=== PATIENT | male | born 1945 | race Caucasian/White ===

== ENCOUNTER 2016-12-22 13:06 | Inpatient (IN) | payer MEDICARE, BC ==
[~2016-12-22] VITALS: Ht 177.8 cm; Wt 102.3 kg
--- NOTE | ~2016-12-22 | ECH ---
Transthoracic Echocardiography Report (TTE) Demographics Patient Name MATTHEW PORTER Date of Study 12/22/2016 Patient Number [id number] Visit Number [id number] Date of 1945 Room Number Accession Number [id number] Gender Male Age 71 year(s) Referring Sergio Deng Negative Cutter Lisa Duff MD [facility] Physician Interpreting Sergio Deng Residential Manager Physician Supervising Ordering Physician Sergio Deng MD/MLP Nurse Stress Ramp And Cargo Supervisor Conclusions Summary Technically good exam. The estimated left ventricular ejection fraction is 60%. Mild concentric left ventricular hypertrophy. Diastolic assessment reveals Grade I diastolic dysfunction. Mild biatrial enlargement. Mild prolapse of the posterior mitral valve leaflet(s). Moderate mitral regurgitation by color Doppler. Procedure Type of Study TTE procedure:Echo Complete SF. Procedure Date Date: 12/22/2016 Start: 02:45 PM Technical Quality: Good visualization Indications:Chest pain and Elevated Troponin. Appropriate Use Criteria: 9 Height: 72 inches Weight: 230 pounds BSA: 2.26 m Rhythm: Sinus bradycardia HR: 55 bpm BP: 132/76 mmHg M-Mode/2D Measurements LV Diastolic Dimension: 4.59 cm LV Systolic Dimension: 2.73 cm LV Septum Diastolic: 1.27 cm LV PW Diastolic: 1.22 cm AO Root Dimension: 2.9 cm Cardiac Output: 7.82 l/min LA Dimension: 4.34 cm Cardiac Index: 3.46 l/min*m RV Diastolic Dimension: 4.13 cm LA volume index: 36 ml/m LVOT: 2.13 cm LVOT VTI: 39.91 cm RV Base: 3.5 cm LV Stroke volume: 142.14 ml RV Mid: 2.9 cm LV Stroke volume index: 62.89 ml/m TAPSE: 2.4 cm TDI-S': 14 cm/s Doppler Measurements AV Peak Velocity: 1.5 m/s MV Peak E-Wave: 0.65 m/s AV Peak Gradient: 9 mmHg MV Peak A-Wave: 0.89 m/s AV Mean Gradient: 5.98 mmHg MV E/A Ratio: 0.73 LVOT Peak Velocity: 1.54 m/s MV P1/2t: 69.3 msec AV Area (Continuity):3.74 cm MV Deceleration Time: 236.2 msec MV Area (PHT): 3.17 cm PV Peak Velocity: 1.07 m/s E' Septal Velocity: 0.06 m/s PV Peak Gradient: 4.57 mmHg E' Lateral Velocity: 0.09 m/s A' Septal Velocity: 0.1 m/s A' Lateral Velocity: 0.11 m/s RA Area: 18.33 cm Findings Left Ventricle The left ventricle is normal in size . Mild concentric left ventricular hypertrophy. Diastolic assessment reveals Grade I diastolic dysfunction. Right Ventricle Normal right ventricle structure and function. Left Atrium The left atrium is mildly dilated by LA volume index measurement. Right Atrium The right atrium is mildly dilated. Mitral Valve Systolic anterior motion of the anterior mitral valve leaflet. Mild prolapse of the posterior mitral valve leaflet(s). Mild mitral regurgitation by color Doppler. Aortic Valve Normal aortic valve structure and function. Tricuspid Valve Normal tricuspid valve structure and function. Trivial tricuspid regurgitation by color Doppler. Insufficient jet to calculate pulmonary pressures. Pulmonic Valve Normal pulmonic valve structure and function. Pericardial Effusion No evidence of pericardial effusion. Miscellaneous Visualized portions of the aortic root and ascending aorta appear normal in size. Pleural Effusion No evidence of pleural effusion. Contractility Score LV regional wall motion:(0-Non visualized 1-Normal 2-Hypokinesis 3-Akinesis 4-Dyskinesis 5-Aneurysm) Signature
--- NOTE | ~2016-12-22 | CATH ---
Cardiac Diagnostic + PCI Report Demographics Patient Name GERMAN Dumont Gender Male Date of 1945 Age 71 year(s) Patient Number [id number] Date of Study 12/23/2016 Visit Number [id number] Room Number 424 [employer] ID Ht 182.88 cm Wt 104.33 kg Accession Number [id number] BSA 2.26 m kg/m Referring Fruehling Alvin R Primary Physician Physician Performing Fruehling Alvin R Secondary Physician Physician Diagnostic Fruehling Alvin R Assisting Physician Physician MD Interventional Fruehling Alvin R Physician Inward Toll Operator Physician MD Findings and Conclusions Diagnostic Findings and Conclusion 1. Two vessel CAD -Sequential 80% mid LAD and 95% distal LAD -90% prox OM-1, calcified -Non-obstructive CAD of Dominant RCA 2. EDP 10mmhg Diagnostic Recommendations 1. Immediate PCI of 80% mLAD, 95% dLAD, and 90% prox OM-1 lesions Interventional Findings and Conclusion 1. Successful PCI of LAD with overlapping 3.5 X 16 and 4.0 X 20 Synergy Drug Eluting Stent from distal to proximal. 2. Post-dilated with a 4.5 mm NC balloon 3. IVUS of LAD due to a proximal filling defect showed no dissection and good stent apposition 4. Successful PCI of OM-1 with a 2.5 X 12 Synergy Drug Eluting Stent. Highly calcified and post-dilated with a NC balloon. Interventional Recommendations 1. Integrilin infusion x 12 hours 2. [facility] dual anti-platelet therapy Procedure Description The patient was brought to the diagnostic cardiac catheterization laboratory in the fasting, non-sedated state. Informed consent was obtained in the written and verbal form after the risks and benefits were explained. The patient had no further questions and agreed to proceed. The planned puncture-incision site(s) were shaved and prepped with ChloraPrep and draped in the usual sterile manner. Conscious sedation, supplemental oxygen, and pain control medications were delivered by a registered nurse under physician guidance. Surface ECG rhythm, blood pressure measurement, and pulse oximetry were monitored throughout the procedure. Arterial access. The right radial access site was infiltrated with lidocaine. The vessel was entered with the Seldinger technique. A 6F sheath was advanced into the vessel and used for catheter placement. Radial cocktail was administered per protocol. Selective right coronary angiography. A JR4 catheter was advanced into the right coronary vessel ostium under fluoroscopic guidance. Contrast was injected by hand. Images were obtained in multiple projections. Selective left coronary angiography. An FL3.5 catheter was advanced into the left coronary vessel ostium under Fluoroscopic guidance. Contrast was injected by hand. Images were obtained in multiple projections. Left heart catheterization. A JR4 catheter was advanced across the aortic valve to the left ventricle under fluoroscopic guidance. Resting hemodynamics were obtained. Angioplasty and Stent Placement: An EBU 3.5 guiding catheter was used to intubate the LAD vessel. A 0.14 Prowater wire was then used to cross the LAD lesions. A 2.75 X 12 Emerge balloon catheter was placed across the mid and distal lesions and inflated. The balloon catheter was then removed. A 3.5 X 16 Synergy Drug Eluting Stent was placed across the dLAD lesion and inflated. A 4.0 X 20 Synergy Drug Eluting Stent was placed across the mLAD lesion and inflated.The mLAD lesion was post-dilated with a 4.5 X 12 NC Emerge balloon. Post placement angiograms were performed. IVUS was performed. The LAD vessel was cannulated. An .014 Prowater interventional wire was advanced across the LAD lesson into the distal vessel. The IVUS catheter was advanced into position and imaging was performed. Vessel dimensions were measured. Angioplasty and Stent Placement: An EBU3.5 guiding catheter was used to intubate the OM1 vessel. A 0.14 Luge wire was then used to cross the OM1 lesion. A 2.25 X 12 Emerge balloon catheter was placed across the OM1 lesion and inflated. The balloon catheter was then removed. A 2.5 X 12 Synergy Drug Eluting Stent was placed across the OM1 lesion and inflated. The OM1 lesion was post-dilated with a 2.5 X 8 NC Emerge balloon. Post placement angiograms were performed. Arterial artery hemostasis was achieved with a TR band. The patient was transferred to a regular nursing floor via cart accompanied by a nurse. The patient left the laboratory in stable condition. Diagnostic Cath Status: Urgent Procedure Procedure Type Diagnostic procedure:Angiography:, Coronary Angios /[facility] PCI procedure:Drug Eluting Coronary Stent:, LAD, OM, Additional Imaging:, IVUS:, Initial Vessel Indications: NSTEMI, Hypertension and Tobacco use-prior. The procedure was explained in detail to the patient. Risks, complications and alternative treatments were reviewed. Written consent was obtained. Medications Reviewed with Patient prior to Procedure. Complications: No Complication. Angiographic Findings Dominance: Right Cardiac Arteries and Lesion Findings LMCA: Normal (0% Stenosis). LAD: Abnormal.Thrombotic lesions Lesion on Dist LAD: 95% stenosis reduced to 0%.Post Procedure YISEL III flow was present. The guidewire cross was successful.The lesion was diagnosed as a low risk lesion.Culprit lesion. Treatment results:Interventional treatment was successful. Devices used - PROWATER WIRE 0.014" X 180CM. Number of passes: 1. - CATH BAL RX EMERGE 2.75X12. 1 inflation(s) to a max pressure of: 12 araceli. - CATH BAL RX EMERGE 2.75X12. 1 inflation(s) to a max pressure of: 7 araceli. - CATH STENT SYNERGY 3.5 X 16. 1 inflation(s) to a max pressure of: 16 araceli. Lesion on Mid LAD: 80% stenosis reduced to 0%.Post Procedure YISEL III flow was present. The guidewire cross was successful.The lesion was diagnosed as a low risk lesion.Culprit lesion. Treatment results:Interventional treatment was successful. Devices used - CATH BAL RX EMERGE 2.75X12. 1 inflation(s) to a max pressure of: 9 araceli. - CATH STENT SYNERGY 4.0 X 20. 1 inflation(s) to a max pressure of: 17 araceli. - CATH BAL RX NC EMERGE 4.5X12. 2 inflation(s) to a max pressure of: 14 araceli. Lesion on Prox LAD: 30% stenosis . LCx: Abnormal. Lesion on 1st Ob Krystal: Proximal subsection.95% stenosis reduced to 0%.Post Procedure YISEL III flow was present. The guidewire cross was successful.The lesion was diagnosed as a low risk lesion.Culprit lesion. Treatment results:Interventional treatment was successful. Devices used - PROWATER WIRE 0.014" X 180CM. Number of passes: 1. - LUGE WIRE 0.014" X 180CM. Number of passes: 1. - CATH BAL RX EMERGE 2.25X12. 2 inflation(s) to a max pressure of: 12 araceli. - CATH STENT SYNERGY 2.5 X 12. 1 inflation(s) to a max pressure of: 15 araceli. - CATH BAL RX NC EMERGE 2.5X8. 1 inflation(s) to a max pressure of: 20 araceli. RCA: Abnormal. Lesion on Prox RCA: 30% stenosis . Lesion on Mid RCA: 30% stenosis . Lesion on Dist RCA: 30% stenosis . Lesion on Dist RCA: Distal subsection.40% stenosis .Bifurcation lesion. Coronary Tree Procedure Data Procedure Date Date: 12/23/2016Start: 07:54 AMEnd: 10:14 AM Entry Locations - Percutaneous access was performed through the Right Radial artery (Primary location). A 6 Fr sheath was inserted. Hemostasis was successfully obtained using an R band. Procedure Medications Order and Administration + + +--------+ + !Time !Medication !Dosage !Route ! + + +--------+ + !12/23/2016 !Versed !2 mg !I.V. ! !07:57 AM ! ! ! ! + + +--------+ + 12/23/2016 !Fentanyl !50 mcg !I.V. ! !07:57 AM ! ! ! ! + + +--------+ + 12/23/2016 !Sodium Chloride !10 ml !I.V. ! !07:57 AM ! ! ! ! + + +--------+ 12/23/2016 !Fentanyl !50 mcg !I.V. ! !08:16 AM ! ! ! ! + + +--------+ 12/23/2016 !SF Radial Cocktail: 200mcg Nitro, 2.5 ! !I.A. ! !08:18 AM !mg Verapamil, 5000u Heparin ! ! ! + + +--------+ 12/23/2016 !Versed !1 mg !I.V. ! !08:22 AM ! ! ! ! + + +--------+ 12/23/2016 !Oxygen !2 l/min !NC ! !08:27 AM ! ! ! ! + + +--------+ + 12/23/2016 !Brilinta (Ticagrelor) (ACC_20) !180 mg !P.O. ! !08:44 AM ! ! ! ! + + +--------+ + !12/23/2016 !Heparin (ACC_3) !2000 !I.V. ! !08:47 AM ! !units ! ! + + +--------+ + 12/23/2016 !Versed !1 mg !I.V. ! !08:50 AM ! ! ! ! + + +--------+ + 12/23/2016 !Sodium Chloride !10 ml !I.V. ! !08:50 AM ! ! ! ! + + +--------+ + 12/23/2016 !Nitroglycerin !200 mcg !I.C. ! !09:17 AM ! ! ! ! + + +--------+ + !12/23/2016 !Fentanyl !50 mcg !I.V. ! !09:19 AM ! ! ! ! + + +--------+ + !12/23/2016 !Fentanyl !50 mcg !I.V. ! !09:23 AM ! ! ! ! + + +--------+ + !12/23/2016 !Integrilin (ACC_7) !9 !I.V. bolus ! !09:29 AM ! ! ! ! + + +--------+ + 12/23/2016 !Integrilin (ACC_7) !16 !I.V. drip ! !09:33 AM ! ! ! ! + + +--------+ + !12/23/2016 !Integrilin (ACC_7) !9 !I.V. bolus ! !09:43 AM ! ! ! ! + + +--------+ + !12/23/2016 !Heparin (ACC_3) !3000 !I.V. ! !10:12 AM ! !units ! ! + + +--------+ + Devices Used - ACATH 6F FR4 CATHETER 100CMwas used for:Right coronary angiography. - ACATH 6FR FL3.5 CATHETER 100CMwas used for:Left coronary angiography. - ACATH 6F FR4 CATHETER 100CMwas used for:LV Pressures. - AGUIDE CATHETER 6FR EBU 3.5 100CMwas used for:LAD Intervention. Contrast Material - Isovue [id number] ml Fluoroscopy Time: Diagnostic: 26:00 minutes. Total: 26:00 minutes. Fluoroscopy Dose: Diagnostic: 4204 mGy. Total: 4204 mGy. Estimated Blood Loss: 12 ml. Medical History Allergies - No known allergies. Risk Factors The patient risk factors include:hypertension, last creatinine: 1 mg/dl, creatinine clearance: 97.08 ml/min and former tobacco use. Admission Data Admission Date: 12/22/2016 Admission Time: 03:49 PM Insurance Payors: Medicare. Clinical Evaluation Leading to Procedure - The patient's CAD presentation was assessed as: Non-STEMI. - The patient's anginal syndrome during the past two weeks was assessed as: Class IV according to the [place] Cardiovascular Society Classification System (CCS). Anti-anginal medications were prescribed during the past two weeks. The medication is: Long Acting Nitrates. Hemodynamics Condition: Rest O2 Consumption: Estimated: 243.18Heart Rate: 50 bpm Pressures (mmHg) +-----+ + !Site !Pressure ! +-----+ + !AO !100/54 (75) ! +-----+ + !LV !94/7 ,10 ! +-----+ + !AO !108/55 (81) ! +-----+ + !LV !86/6 ,6 ! +-----+ + Valve Gradients and Areas + +---------+---------+---------+ +---------+ + !Valve !Peak !Mean !Area !Index !Flow !Source ! + +---------+---------+---------+ +---------+ + !Aortic !0 !0 ! ! ! ! ! + +---------+---------+---------+ +---------+ + !Aortic !0 !0 ! ! ! ! ! + +---------+---------+---------+ +---------+ + Shunts Oxygen Values O2 Capacity 190.4 O2 Consumption 243.18 Discharge Data Discharge Date: 12/24/2016 Hospital Status: Inpatient Signatures
[2016-12-25] MEDS ORDERED: DELZICOL400 M1 PO (10:13)
[2016-12-25] MEDS ORDERED: LIPITOR40 MG PO (10:14)
[2016-12-25] MEDS ORDERED: ASPIRIN EC81 MG PO (10:14)
[2016-12-25] MEDS ORDERED: COZAAR DPS25 MG PO (10:14)
[2016-12-25] MEDS ORDERED: BRILINTA90 MG PO (10:14)
[2016-12-25] MEDS ORDERED: ZANTAC DPS150 MG PO (10:14)
[2016-12-25] MEDS ORDERED: NITROSTAT0.4 MG SL (10:14)
--- NOTE | 2016-12-27 23:43 | ER ---
ADMIT: 12/22/2016 RM/LOC: ER [facility] MR#: [id number] [address] [address] MATTHEW PORTER [address] [place] [address] Emergency Room Report SEX: M AGE: 71 : 1945 DATE: 12/22/2016 TIME: 1306 hours. Please refer to my T-sheet for complete H and P. Briefly, the patient is a 71- year-old, comes in with chest pain started 11 a.m. Picked up by the ambulance, given nitroglycerin and aspirin. His pain was gone by the time he gets here. He has been having some pain, on off for the last couple of weeks, couple 3 episodes, substernal. He has never had heart problems although he is planning to have a stress test coming up. He does not smoke. He really does not take very many medicines. He was not doing anything strenuous. It was a pressure down his left arm. PHYSICAL EXAMINATION: VITAL SIGNS: Blood pressure 133/84, pulse 50, respiratory rate 16, temp 97.4, and sat 97%. GENERAL: No acute distress. HEENT: Grossly normal. LUNGS: Clear. HEART: Regular. ABDOMEN: Soft. SKIN: No rash. NEUROLOGIC: Alert and oriented, nonfocal. EMERGENCY ROOM COURSE: Cardiac routine was obtained. CBC normal. Chemistries normal. CK was 219, CK-MB 6.9, and troponin 0.55. EKG is sinus rhythm, rate 53, no changes. Right bundle branch block. Chest x-ray negative. I talked to Dr. Castro and Cardiology who will admit to the hospital. ASSESSMENT: Acute non ST-elevation myocardial infarction. PLAN: Admit to the hospital. Gilbert Correa MD/ vinny JOB #: [id number] CC: Gilbert Correa MD, Attending Physician
--- NOTE | 2016-12-30 16:52 | HP ---
ADMIT: 12/22/2016 RM/LOC: 424 [facility] MR#: [id number] [address] [address] MATTHEW PORTER [address] [place] [address] History and Physical SEX: M AGE: 71 : 1945 DATE OF SERVICE: REASON FOR VISIT: Chest pain. HISTORY OF PRESENT ILLNESS: A 71-year-old gentleman has some history of hypertension and inflammatory bowel disease. He presented with on and off chest discomfort for a few weeks he had one severe episode about a week. I actually saw him in the office a couple days ago after he had this one sensation last week. Workup initially was negative. He had a right bundle- branch block on his EKG, which was relatively new. At that time, he had no shortness of breath or radiation of his pain or any associated symptoms. Today, he was out on his boat started getting more of a squeezing tightness sensation in his chest, which became more and severe. It radiated to his left elbow and wrist. It was a little bit more with exertion and then just started having it with rest as well. This lasted over an hour or so. He called 911. They met him at the [facility]. He drove his boat there and was taken to [facility]. Initial troponin was elevated. PAST MEDICAL HISTORY: Includes hypertension, kidney stones, and history of appendiceal carcinoma. He has a pituitary adenoma, history of GERD, hiatal hernia, and microscopic hematuria. He has had some inflammatory bowel disease in the past. PAST SURGICAL HISTORY: Surgeries include 2 cataracts, pituitary adenoma removed, and 2 hip surgeries because of osteonecrosis. He had an appendectomy, cholecystectomy, rotator cuff, sinus surgery, bladder surgery, esophageal dilation, and he has had diverticulitis. SOCIAL HISTORY: He quit smoking about 18 years ago. He is , semi retired as a dean. FAMILY HISTORY: Heart disease, diabetes, and cancer. Grandpa had heart attack at age 72, ultimately from that. His mom is diabetic. ALLERGIES: INCLUDE HE HAS FUNNY REACTION WHEN HE GETS NITRIC OXIDE AT DENTIST'S OFFICE. MEDICATIONS: Include: 1. Delzicol. 2. Omeprazole. REVIEW OF SYSTEMS: Other complete review of systems obtained and negative except as above. PHYSICAL EXAMINATION: VITAL SIGNS: Temp 96.9, pulse 45, respirations 16, blood pressure 148/74, and oxygen saturation 99% on 2 L oxygen by nasal cannula. GENERAL: This is a well-appearing, 71-year-old gentleman. He has long schofield hair. He is in no apparent distress. Pupils equally round, reactive to ADMIT: 12/22/2016 RM/LOC: 424 [facility] MR#: [id number] [address] [address] MATTHEW PORTER [address] [place] [address] History and Physical SEX: M AGE: 71 : 1945 light, and accommodation. Extraocular muscles are intact. Throat is clear. NECK: Supple. Trachea is midline. Thyroid nonpalpable. HEART: Regular rate and rhythm. LUNGS: Clear to auscultation bilaterally. ABDOMEN: Soft, without any tenderness. EXTREMITIES: His lower extremities have just trace edema. He can move all extremities equally bilaterally. ASSESSMENT/PLAN: Coronary artery disease status post stenting as he just back from his cardiac cath and he had 2 LAD lesions and 1 circumflex lesion at OM1, so he was treated with dual anti-platelet therapy. He is on statin, no beta- sarah secondary to bradycardia and to be watched closely in the hospital post catheterization. Walker Castro MD/ vinny JOB #: [id number] CC: Walker Castro, Attending Physician Walker Castro, Family Physician
--- NOTE | 2017-01-16 08:37 | DS ---
ADMIT: 12/22/2016 RM/LOC: 424 [facility] MR#: [id number] [address] [address] MATTHEW PORTER [address] [place] [address] Discharge Summary SEX: M AGE: 71 : 1945 ADMISSION DATE: 12/22/2016 DISCHARGE DATE: 12/24/2016 DIAGNOSES: 1. Non-STEMI DC (myocardial infarction). 2. Coronary artery disease. 3. Hypertension. 4. Tobacco use. 5. Right bundle branch block on EKG (electrocardiogram). 6. GERD (gastroesophageal reflux disease). 7. Colitis. 8. Bradycardia. 9. Mild mitral valve prolapse on echo. 10.Moderate mitral regurgitation on echo. CONSULT: [facility] Cardiology. PROCEDURE: 1. Echocardiogram 12/22/2016. 2. Cardiac cath 12/23/2016 with intravascular ultrasound. REASON FOR HOSPITALIZATION: Chest pain. See dictated H and P. LABORATORY AND X-RAY DATA: Echo with an ejection fraction of 60%. Mild concentric LVH. Diastolic dysfunction, mild prolapse of the posterior mitral valve and moderate mitral regurgitation. Sodium 140, potassium 4, chloride 109, CO2 24, BUN 15, creatinine 0.9, glucose 108, calcium 8.3, total bilirubin was 1, total protein 6, albumin 3.2, alkaline phosphatase 58, AST 78, LDH 203, ALT 30, HDL 51, LDL 73. Triglycerides 64, cholesterol 137. CPK on admission was 219 up to 594, final value was 418. MV did go up to 31.7 down to 20.6. Troponin 0.551 up to 18.7, final value of 15.9. PTTs were variable, see chart. White count 6.5, hemoglobin 15.1, platelet count 160. Chest x-ray was negative on 12/22/2016. COURSE IN THE HOSPITAL: Arvid was admitted. Found to have non-STEMI. Cardiac cath was performed and revealed triple-vessel disease. He had stents placed. He had sequential 80% mid LAD and 95% distal LAD lesions and 90% proximal OM1, which was calcified and otherwise nonobstructive. RCA was noted to be dominant. He had PCI of the LAD with overlapping 3.5/16 and 4.0 x 20 mm Synergy stents from distal to proximal. Intravascular ultrasound was performed of the LAD due to a proximal filling defect, which showed no dissection or abnormalities. He was started on Brilinta. He was feeling much improved and ready for dismissal. Discussed issues. I would have him take Zantac instead of Prilosec here for at least a month or two. I defer this to Dr. Castro to discuss in the future. DISCHARGE INSTRUCTIONS: ADMIT: 12/22/2016 RM/LOC: 424 [facility] MR#: [id number] [address] [address] MATTHEW PORTER [address] [place] [address] Discharge Summary SEX: M AGE: 71 : 1945 1. Aspirin 81 mg daily. 2. Brilinta 90 mg b.i.d. 3. Atorvastatin 40 mg daily. 4. Cozaar 25 mg daily. 5. Nitroglycerin 0.4 p.r.n. 6. Zantac 150 b.i.d. FOLLOWUP: Dr. Castro in 3-4 weeks. Overall, prognosis is good. Time spent was 45 minutes. Shavon Duong MD/ ilda JOB #: [id number] CC: Walker Castro MD, Attending Physician Walker Castro MD, Family Physician
--- NOTE | 2017-01-20 10:32 | CO ---
ADMIT: 12/22/2016 RM/LOC: 424 [facility] MR#: [id number] [address] [address] MATTHEW PORTER [address] [place] [address] Consultation SEX: M AGE: 71 : 1945 DATE OF CONSULTATION: 12/22/2016 ATTENDING PHYSICIAN: Walker Castro CONSULTING PHYSICIAN: Alvin Hill MD REASON FOR CONSULTATION: Chest pain, elevated cardiac enzymes. HISTORY OF PRESENT ILLNESS: The patient is a pleasant 71-year-old male, with no known history of coronary artery disease. He states he has been having chest discomfort, off and on for approximately 2 weeks. This feels like a squeezing sensation and heaviness on his chest. It does come on with shortness of breath and radiates into his left elbow and wrist. He has this with exertion and then recently started having it with rest. Today when it started with rest and lasted over an hour which was unusual, he came into the emergency room for further evaluation. He has also had some swelling off and on in his lower extremities throughout the last month, month and half. He denies any passing out, any dizzy or lightheaded episodes. PAST MEDICAL HISTORY: Positive for hypertension, nephrolithiasis, history of appendix carcinoma, history of a pituitary adenoma, history of GERD, hiatal hernia, and microscopic hematuria. PAST SURGICAL HISTORY: He has had 2 cataracts removed. He has had his pituitary adenoma removed. He has had 2 hip surgeries. He has had knee scopes. He had an appendectomy, cholecystectomy, rotator cuff repair, sinus surgery, bladder surgery, esophageal dilation, and had also has diverticulitis. SOCIAL HISTORY: He quit smoking approximately 18 years ago. He is . He is semi retired as a dean. Drinks about 3 drinks of alcohol a week and drinks coffee. Does not follow special diet at home. FAMILY HISTORY: Positive for heart disease, diabetes, and cancer. His grandpa had a heart attack at age 72 which was his cause of and his mom was a diabetic. MEDICATIONS: That he was taking at home include: 1. Delzicol 800 mg 1 tablet daily. 2. Omeprazole 20 mg p.o. daily. ALLERGIES: HE HAS ADVERSE REACTION WHEN HE GETS NITRIC OXIDE AT THE DENTIST'S OFFICE. REVIEW OF SYSTEMS: GENERAL: Denies fever, chills, sweats, rash. He has been tiring easily recently and states his weight has steadily been increasing. EYES: Denies double vision, blurred vision, or glaucoma. He has had bilateral cataracts removed and has sinus problems ever since his pituitary adenoma surgery. ADMIT: 12/22/2016 RM/LOC: 424 [facility] MR#: [id number] [address] [address] MATTHEW PORTER [address] [place] [address] Consultation SEX: M AGE: 71 : 1945 ENT: Denies hearing loss or problems with mouth or throat. PULMONARY: Denies cough, sputum production, asthma, emphysema or bronchitis. Denies snoring loudly, wakefulness at night, or fatigue upon awakening. GASTROINTESTINAL: Denies difficulty swallowing. No change in bowel habits. Denies dark or bloody stools. No history of ulcers or liver disease. He has a history of GERD and hiatal hernia. He has had his gallbladder removed. He also has a history of appendix carcinoma. GENITOURINARY: Denies dysuria, nocturia, or urinary tract infection. Denies history of renal insufficiency or failure. He has microscopic hematuria and a history of kidney stones. MUSCULOSKELETAL: Denies history of arthritis or gout. Denies muscle or joint pains. ENDOCRINE: Denies history of thyroid dysfunction or diabetes. HEMATOLOGIC: Denies history of anemia, easy bruising, or cancer. NEUROLOGIC: Denies chronic headaches, dizziness, syncope, stroke, seizures. Some numbness and tingling in his hands and his feet. PSYCHIATRIC: Denies history of mental illness or feelings of depression. PHYSICAL EXAMINATION: Per Dr. Hill. VITAL SIGNS: Temp 98.8, pulse 48, respirations 16, blood pressure 139/68, and O2 saturation 96%. SKIN: Portal, warm and dry. EYES: Sclerae clear. No xanthelasmas. ENT: Oral mucosa is pink and moist. No jugular venous distention or carotid bruits. CHEST: Respirations are even and unlabored. Lungs are clear to auscultation. HEART: Regular rate and rhythm. Normal S1, S2. No murmurs, rubs or gallops. ABDOMEN: Soft and nontender. MUSCULOSKELETAL: Gait is normal. EXTREMITIES: Peripheral pulses palpable. No clubbing, cyanosis or edema. PSYCHIATRIC: Alert and oriented. Mood and affect are appropriate. DIAGNOSTIC DATA: CBC; white blood count of 6.8 with red blood count 4.97, hemoglobin 15.3, hematocrit 44.3 with a platelet count of 186. Chest x-ray is negative for any acute abnormalities. Sodium 141, potassium 3.7, chloride 108, carbon dioxide 23, BUN of 16, glucose 103, creatinine 1.0, mag of 2.1. Troponin of 0.551, CK of 219 with an MB of 6.9. ASSESSMENT: Per Dr. Hill: 1. Non-ST elevated acute coronary syndrome. 2. Tobacco abuse. 3. Hypertension. PLAN: Per Dr. Hill. He has high risk factors for significant coronary ADMIT: 12/22/2016 RM/LOC: 424 [facility] MR#: [id number] [address] [address] MATTHEW PORTER [address] [place] [address] Consultation SEX: M AGE: 71 : 1945 artery disease and future events. Because of his symptoms, we will admit and plan on continuing his heparin drip which was started in the emergency room. He is also given aspirin. We will start a statin, but we will not start a beta-sarah because of his bradycardia. We will get an echocardiogram and also plan for coronary angiogram in the morning. Risks and benefits such as but not limited to, pain, infection, bleeding, neurovascular damage, kidney damage, TN, stroke, and rarely were explained to the patient. He is willing to proceed. Further recommendations will be based on the above diagnostics. We will continue to monitor his symptoms and diagnostics and amend our plan accordingly. Thank you for allowing us to participate in care of this patient. ANGY Campos / Alvin Hill MD / vinny JOB #: [id number] CC: Walker Castro, Attending Physician Walker Castro, Family Physician
[2017-01-26] MEDS ORDERED: PERCOCET 5-3251 EACH PO (14:06)
[2017-04-11] MEDS ORDERED: PROTONIX40 MG PO (15:31)
[2017-04-11] MEDS ORDERED: NITROSTAT0.4 MG SL (15:31)
[2017-04-11] MEDS ORDERED: DELZICOL400 M1 PO (15:31)
[2017-04-11] MEDS ORDERED: LIPITOR40 MG PO (15:32)
== END 2016-12-24 12:35 | disposition home or self-care (01) | DRG 247 ==
LOC: ER 13:06 → 4PCU 15:49
PROVIDERS: ADMIT Internal Medicine
PROC: B240ZZ3 Ultrasonography of Single Coronary Artery, Intravascular (ICD-10-PCS; principal; 2016-12-22)
PROC: B2111ZZ Fluoroscopy of Multiple Coronary Arteries using Low Osmolar Contrast (ICD-10-PCS; principal; 2016-12-22)
PROC: 3E033PZ Introduction of Platelet Inhibitor into Peripheral Vein, Percutaneous Approach (ICD-10-PCS; principal; 2016-12-22)
PROC: 027136Z Dilation of Coronary Artery, Two Arteries with Three Drug-eluting Intraluminal Devices, Percutaneous Approach (ICD-10-PCS; principal; 2016-12-22)
PROC: 4A023N7 Measurement of Cardiac Sampling and Pressure, Left Heart, Percutaneous Approach (ICD-10-PCS; principal; 2016-12-22)
DX: I21.4 Non-ST elevation (NSTEMI) myocardial infarction (principal); R00.1 Bradycardia, unspecified; I34.0 Nonrheumatic mitral (valve) insufficiency; I10 Essential (primary) hypertension; I45.10 Unspecified right bundle-branch block; I25.10 Atherosclerotic heart disease of native coronary artery without angina pectoris; K52.9 Noninfective gastroenteritis and colitis, unspecified; I34.1 Nonrheumatic mitral (valve) prolapse; K21.9 Gastro-esophageal reflux disease without esophagitis; K57.90 Diverticulosis of intestine, part unspecified, without perforation or abscess without bleeding; K44.9 Diaphragmatic hernia without obstruction or gangrene; Z87.891 Personal history of nicotine dependence; Z85.89 Personal history of malignant neoplasm of other organs and systems; Z87.442 Personal history of urinary calculi; Z82.49 Family history of ischemic heart disease and other diseases of the circulatory system

== ENCOUNTER 2016-12-30 17:31 | Emergency (ER) | payer MEDICARE, BC ==
[~2016-12-30 17:31] MED LIST: ASPIRIN EC81 MG PO; BRILINTA90 MG PO; COZAAR DPS25 MG PO; DELZICOL400 M1 PO; LIPITOR40 MG PO; NITROSTAT0.4 MG SL; ZANTAC DPS150 MG PO
--- NOTE | 2017-01-05 09:21 | ER ---
ADMIT: 12/30/2016 RM/LOC: ER [facility] MR#: [id number] [address] [place], [place] [address] MATTHEW PORTER [address] [place] [address] Emergency Room Report SEX: M AGE: 71 : 1945 DATE: 12/30/2016 ADDENDUM: See T-sheet for complete H and P. A 71-year-old male with recent szy-GB-sjzzufcph NE with stents placed a week ago presents to the ER complaining of some chest pain. He did get complete relief of his chest pain when he took his nitroglycerin prior to arrival. While in the ER, he has had no return of his chest pain. I did check cardiac enzymes, and he has troponin of 0.226, but this is not significantly down from his troponin that I saw on 18 within the last week. His EKG showed nothing acute. His CBC and chemistries are normal, and a chest x-ray is normal. The patient had no abnormalities in his vital signs and is feeling back to normal. I did discuss the case with Dr. Hill from Cardiology and who is aware of the patient. At this point, he does feel the patient is safe to go home, but is told that he is to return for any worsening or concerning symptoms and is to not exert himself over the weekend. He can resume cardiac rehab next week. DIAGNOSIS: Chest pain. Harjit Cole MD/ vinny JOB #: [id number] CC: Harjit Cole MD, Attending Physician Walker Castro MD, Family Physician
[2017-01-26] MEDS ORDERED: PERCOCET 5-3251 EACH PO (14:06)
[2017-04-11] MEDS ORDERED: DELZICOL400 M1 PO (15:31)
[2017-04-11] MEDS ORDERED: PROTONIX40 MG PO (15:31)
[2017-04-11] MEDS ORDERED: NITROSTAT0.4 MG SL (15:31)
[2017-04-11] MEDS ORDERED: LIPITOR40 MG PO (15:32)
== END 2016-12-30 19:32 | disposition home or self-care (01) ==
LOC: ER 17:31
DX: R07.9 Chest pain, unspecified (principal); I10 Essential (primary) hypertension; I25.10 Atherosclerotic heart disease of native coronary artery without angina pectoris; I25.2 Old myocardial infarction; K21.9 Gastro-esophageal reflux disease without esophagitis; E78.5 Hyperlipidemia, unspecified; Z79.82 Long term (current) use of aspirin

== ENCOUNTER 2017-01-21 12:45 | Inpatient (IN) | payer MEDICARE, BC ==
[~2017-01-21] VITALS: Ht 177.8 cm; Wt 101.7 kg
--- NOTE | ~2017-01-21 | CO ---
ADMIT: 01/21/2017 RM/LOC: 409 [facility] MR#: [id number] [address] [address] MATTHEW PORTER [address] [place] [address] Consultation SEX: M AGE: 71 : 1945 DATE OF CONSULTATION: 01/23/2017 ATTENDING PHYSICIAN: Walker Castro CONSULTING PHYSICIAN: Sowmya Wooten MD PROBLEM: Left ureteral calculus. HISTORY OF PRESENT ILLNESS: This 71-year-old gentleman, has a history of stone disease dating back several years. Approximately three days ago, he had the sudden onset of left flank pain and presented to the emergency room at [facility] on 01/20 to which time a renal colic CT demonstrated a 5 mm calculus in the proximal left ureter, just below the ureteropelvic junction. He did have a nonobstructing stone approximately 4 mm in the right renal unit. He has had intermittent pain since that time in the left flank without radiation into the left lower quadrant. There has been no nausea or vomiting. Denies any fever or chills. MEDICATIONS: Delzicol 400 mg two twice a day, Brilinta 90 mg daily, aspirin 81 mg twice a day, atorvastatin 40 mg daily, losartan 25 mg daily, nitroglycerin p.r.n., ranitidine 150 mg b.i.d., and Percocet 5/325 one every 6 hours p.r.n. pain. ALLERGIES: MORPHINE. OPERATIONS: Previous lithotripsy, also has cardiac catheterization on 12/23/2016. REVIEW OF SYSTEMS: He does have a history of atherosclerotic cardiovascular disease, undergoing echocardiogram revealing a 60% EF with diastolic dysfunction and moderate MR. Cardiac catheterization was then performed on 12/23/2016 with intravascular ultrasound showing triple-vessel disease. He did have 80% mid LAD and 95% distal LAD lesions with 90% proximal OM lesion. FAMILY HISTORY: Negative for urologic problems. SOCIAL HISTORY: He does not smoke. PHYSICAL EXAMINATION: GENERAL: This is a healthy appearing 71-year-old, in no acute distress. HEENT: Unremarkable. NECK: Supple without adenopathy. CHEST: Clear to auscultation. ABDOMEN: Soft without tenderness, guarding, or rigidity especially in the left flank. ADMIT: 01/21/2017 RM/LOC: 409 [facility] MR#: [id number] [address] [address] MATTHEW PORTER C [address] [place] [address] Consultation SEX: M AGE: 71 : 1945 EXTREMITIES: He has had full range of motion without deformity. NEUROLOGICAL: He is grossly intact. ASSESSMENT: Left ureteral calculus. PLAN: I have recommended stone manipulation with extracorporeal shock wave lithotripsy, which can be performed on the of this month. He has stopped the Brilinta and this will be discontinued until after his therapy. Thank you for allowing us to assist in the care of your patient. Sowmya Wooten MD/ vinny JOB #: [id number] CC: Walker Castro, Attending Physician Walker Castro, Family Physician Walker Castro MD
--- NOTE | 2017-01-21 18:11 | ER ---
ADMIT: 01/21/2017 RM/LOC: 409 [facility] MR#: [id number] [id number] [place], [place] [address] MATTHEW PORTER [address] [place] [address] Emergency Room Report SEX: M AGE: 71 : 1945 DATE: 01/21/2017 ADDENDUM: See T sheet for complete H and P. This 71-year-old male comes in complaining of generalized weakness, fatigue, lightheadedness, and shortness of breath. It has been going on for couple hours. He was actually seen overnight in the ER for left flank pain. He was diagnosed with a 5 mm left proximal obstructing renal stone. His symptoms of pain were controlled in the ER and he was discharged home on Percocet. He states his pain has been controlled since being home, but over the past 2 hours, he has noted that he has had these symptoms of extreme weakness, dyspnea on exertion, and lightheadedness. He denies any chest pain. His recent history is significant for a deq-DG-zopbdcmvw KS month and a half ago which he had 3 stents placed at that time. The patient is not taking any beta blockers and is on Brilinta and losartan. His EKG shows he is bradycardic with no signs of ST-elevation or acute KS and has a stable right bundle-branch block. CBC was normal. Chemistries are normal other than creatinine 1.5. AST was elevated at 100, ALT is elevated at 142, and cardiac enzymes are normal. BNP is 672. Chest x-ray shows nothing acute. HOSPITAL COURSE: Due to patient's symptomatic bradycardia, he will be admitted for further workup. I spoke to Dr. Duong who is on for the patient's primary care physician. We will write admission orders. I also notified Dr. Goldberg from Cardiology to make him aware of the patient. DIAGNOSES: 1. Symptomatic bradycardia. 2. Renal insufficiency. 3. Left ureterolithiasis. Harjit Cole MD/ vinny JOB #: [id number] CC: Walker Castro MD, Attending Physician Walker Castro MD, Family Physician
--- NOTE | 2017-01-23 13:23 | HP ---
ADMIT: 01/21/2017 RM/LOC: 409 [facility] MR#: [id number] [address] [address] JAVIER PORTER C [address] [place] [address] History and Physical SEX: M AGE: 71 : 1945 DATE OF SERVICE: 01/21/2017 HISTORY OF PRESENT ILLNESS: Javier was just discharged on 12/23 after he had a non-STEMI with subsequent stent placement. His course at that time was unremarkable. He returned home and did well until the evening of January 20. At that time, he had abdominal and left flank pain. CT scan showed a 5 mm left proximal stone in the ureter with some mild hydronephrosis and nonobstructing kidney stone in his right kidney measuring 4 mm. He was planned to be seen for followup with this in the future. Additionally, he did well until the day of admission when he had 2 hours of just feeling awful, lightheaded, weak, fatigued, and more short of breath. He, of course, was concerned about his cardiovascular status and presented to the emergency room for evaluation. He was noted to be bradycardic with heart rates down to 32 at times. He is not on any negative inotropes. He is admitted at this time for evaluation. Reviewing his medications, since he is dismissed home approximately a month ago, he was placed on Brilinta. There are some reports of bradycardia being associated with this medication. Cardiology is on board and helping to assist in his evaluation and whether he needs a pacemaker or continued observation. PAST MEDICAL HISTORY: Basically unchanged from previous hospitalization with the exception of coronary artery disease and non-STEMI on 12/22/2016, status post echo showing EF 60%, diastolic dysfunction, and moderate MR. Cardiac catheterization on 12/23/2016 with intravascular ultrasound showed triple- vessel disease, status post stents. It did show sequential 80% mid LAD and 95% distal LAD lesions and 90% proximal NINA. He had PCI of his LAD with overlapping Synergy stents. MEDICATIONS: Include: 1. Delzicol 400 mg 2 b.i.d. for Crohn. 2. Brilinta 90 mg daily. 3. Aspirin 81 mg 2 daily. 4. Atorvastatin 40 mg daily. 5. Losartan 25 mg daily. 6. Nitroglycerin p.r.n. 7. Ranitidine 150 mg b.i.d. 8. Percocet 5/325 mg 1 every 6 hours p.r.n. ALLERGIES: INCLUDE MORPHINE HE DID NOT LIKE FEELING AND NITROUS OXIDE, WHICH CAUSES HIM TO GO CRAZY. SOCIAL AND FAMILY HISTORY: All unchanged from his previous hospitalization. REVIEW OF SYSTEMS: Flank pain actually seems to be under control. The biggest issue is that of his symptomatic bradycardia. PHYSICAL EXAMINATION: VITAL SIGNS: Temperature 97.4, pulse 40, respirations 16, and blood pressure 143/56. Heart rate is under 50. GENERAL: This is a well-developed, well-nourished white male, currently lying in bed and comfortable. ADMIT: 01/21/2017 RM/LOC: 409 [facility] MR#: [id number] [address] [address] GERMAN АННАVIVIAN Dumont [address] [place] [address] History and Physical SEX: M AGE: 71 : 1945 SKIN: Warm and dry. HEENT: Normocephalic and atraumatic. Anicteric. Mucous membranes are moist. NECK: Supple. LUNGS: Diminished. CARDIOVASCULAR: Bradycardic. No other ectopy noted. ABDOMEN: Soft and nontender. EXTREMITIES: No edema. IMPRESSION: 1. Symptomatic bradycardia. 2. Heart disease, status post recent stent. 3. Vfm-CO-wfrycuc elevation myocardial infarction on 12/03/2016. 4. Nausea and vomiting. 5. Recent nephrolithiasis. 6. Hypertension. 7. Gastroesophageal reflux disease. PLAN: 1. Stop the Brilinta. 2. [facility] to follow along. 3. See chart. Shavon Duong MD/ vinny JOB #: [id number] CC: Walker Castro, Attending Physician Walker Castro, Family Physician
[2017-01-26] MEDS ORDERED: PERCOCET 5-3251 EACH PO (14:06)
--- NOTE | 2017-01-30 21:31 | DS ---
ADMIT: 01/21/2017 RM/LOC: 409 [facility] MR#: [id number] [address] [address] MATTHEW PORTER [address] [place] [address] General Discharge Summary SEX: M AGE: 71 : 1945 ADMISSION DATE: 01/21/2017 DISCHARGE DATE: 01/25/2017 FINAL DIAGNOSES: 1. Nephrolithiasis. 2. Acute kidney injury, likely secondary to nephrolithiasis. 3. History of Crohn's. 4. Recent coronary artery disease with stent placement. REASON FOR ADMISSION: This is a gentleman, who presented with flank pain. He was found to have bilateral kidney stones. See H and P for further details. HOSPITAL COURSE: He was admitted and placed on some IV pain medicine, given nausea medication and then also treated with some IV fluid. Initial kidney function was little bit worse than usual. It got peaked just above 2. He was given more of IV fluid and he end up passing 1 kidney stone; however, he still had a left ureteral stone as well. He was taken to cystoscopy and the stone could not be lithotripsied as it kept migrating proximally. It was ultimately pushed back up into the renal pelvis. He had a double-J stent placed in the left ureter by Urology and then set up for discharge to home. Discussions were had about continuing lithotripsy plans while holding his Plavix/aspirin or whether we should continue on his dual anti-platelet therapy. Because of his recent coronary artery disease, it was felt that he would be best to continue on his dual anti-platelet therapy and leaving the stent for a few months until he is at least 3 months out from his stent placement to avoid complications from holding his anti-platelet therapy. DISCHARGE INSTRUCTIONS: He will follow up with Urology per their schedule and me in about 2 weeks as well. DISCHARGE MEDICATIONS: See discharge medication list for that list. Walker Castro MD/ vinny JOB #: [id number] CC: Walker Castro MD, Attending Physician Walker Castro MD, Family Physician
--- NOTE | 2017-02-08 14:15 | CO ---
ADMIT: 01/21/2017 RM/LOC: 409 [facility] MR#: [id number] [address] [address] MATTHEW PORTER [address] [place] [address] Consultation SEX: M AGE: 71 : 1945 DATE OF CONSULTATION: 01/21/2017 ATTENDING PHYSICIAN: Walker Castro CONSULTING PHYSICIAN: Elisa Goldberg MD REASON FOR CONSULTATION: Bradycardia. HISTORY OF PRESENT ILLNESS: Ms. Porter is a 71-year-old white male, well known to our service with a recent PCI at the time of non STEMI to his OM and LAD in November of this year. Since then, he has been on Brilinta, been participating in cardiac rehab. Yesterday he came to the ER because he was having left flank pain, found to have a kidney stone. Today he re-presented to the ER because he was lightheaded, nauseated, and vomited. He did not pass out. He is also denying any chest pain. PAST MEDICAL HISTORY: 1. Coronary artery disease with recent PCI to his OM and distal and mid LAD using drug-eluting stents, December 23, 2016. 2. History of rotator cuff surgery. 3. History of esophageal dilatation. 4. History of pituitary adenoma removed. 5. History of appendix carcinoma. 6. History of colitis. 7. History of nephrolithiasis. 8. GERD. MEDICATIONS: Include: 1. Brilinta 90 mg p.o. b.i.d. 2. Aspirin 81 mg p.o. daily. 3. Delzicol 400 mg twice a day. 4. Atorvastatin 40 mg a day. 5. Losartan 25 mg a day. 6. Ranitidine 150 mg b.i.d. ALLERGIES: INCLUDE NITROUS. FAMILY HISTORY: Father with cancer. Mother with diabetes. Sister with cancer. SOCIAL HISTORY: He is currently not a smoker. He is semi retired. Has two children. REVIEW OF SYSTEMS: A full 10-point review of systems was obtained and deemed to be negative except for the pertinently dictated positives in the HPI. PHYSICAL EXAMINATION: VITAL SIGNS: At the time of admission shows blood pressure of 142/69 with a pulse of 38, temp 97.6, and weight 99 kg. GENERAL: He is a pleasant, well-nourished, well-developed white male, in no acute distress. Alert and oriented x3. ADMIT: 01/21/2017 RM/LOC: 409 [facility] MR#: [id number] [address] [address] MATTHEW PORTER [address] [place] [address] Consultation SEX: M AGE: 71 : 1945 NECK: Shows brisk carotid upstrokes. No JVD or bruit. CHEST: Clear. HEART: Regular. ABDOMEN: Soft. EXTREMITIES: No cyanosis, clubbing, edema. MUSCULOSKELETAL: Normal. NEUROLOGIC: Normal. SKIN: [place], warm, and dry. LABORATORY AND ANCILLARY DATA: Shows a white blood cell count 6.8, hemoglobin 14.3, platelet count 155,000. Sodium of 142, potassium 4.4, creatinine 1.5, CK 87, MB 1.8. ProBNP is 678. EKG shows sinus bradycardia with a right bundle- branch block. EKG rate of 38 beats per minute. ASSESSMENT AND PLAN: 1. Bradycardia. 2. Status post PCI in November of 2016. 3. Nausea and vomiting. 4. Kidney stone. Question if his bradycardia is due to either vagal response or even due to Brilinta. We will hold his Brilinta and switch him to Plavix. We will check a TSH and monitor his heart rate. May need permanent pacemaker. We will make sure his bradycardia is not due to Brilinta or another cause. Thank you for this consultation. Elisa Goldberg MD/ vinny JOB #: [id number] CC: Walker Castro, Attending Physician Walker Castro, Family Physician
--- NOTE | 2017-02-09 16:51 | OR ---
ADMIT: 01/21/2017 RM/LOC: 409 [facility] MR#: [id number] [id number] [place], [place] [address] MATTHEW PORTER [address] [place] [address] Operative/Delivery Room Report SEX: M AGE: 71 : 1945 SURGERY DATE: 01/24/2017 SURGEON: Sowmya Wooten MD PREOPERATIVE DIAGNOSIS: Proximal left ureteral calculus. POSTOPERATIVE DIAGNOSIS: Proximal left ureteral calculus. OPERATION: Cystoscopy with left ureteroscopy, attempted laser lithotripsy. Placement of left double-J ureteral stent. ANESTHETIC: General. INDICATION FOR PROCEDURE: A 71-year-old gentleman developed sudden onset of left flank pain several days ago, and on CT scan, noted to have a 5 mm calculus in the proximal left ureter. He is admitted now for treatment. DESCRIPTION OF OPERATION: After a suitable general endotracheal anesthetic was obtained, the patient was placed in the dorsal lithotomy position with his genitalia and surrounding skin prepped and draped in the usual sterile fashion. The 23-Paraguayan Olympus cystoscope was inserted under direct visualization with the anterior urethra appearing to be normal. Prostatic fossa did have mild bilobar prostatic enlargement with partial occlusion. Upon entering the bladder, trigone was well developed the posterior orifices in a normal position. Clear efflux of urine from the right. Bladder mucosa was 2+ trabeculated, without evidence of infection or tumor. A 0.03 Glidewire was inserted into the left ureteral orifice and advanced until the tip of the Glidewire was in the renal pelvis. The cystoscope was then removed and a semi- rigid ureteroscope inserted over the Glidewire. The scope was advanced under direct vision into the bladder and then into the left ureteral orifice. The scope was slowly advanced up the ureter until the stone was encountered in the proximal left ureter. A Glidewire was then removed and a 400 micron laser fiber obtained. With use of holmium laser, the stone was attempted to be fragmented with lithotripsy; however, each time the laser fiber was placed on the stone and the laser engaged, the stone would migrate proximally. The stone eventually migrated into the renal pelvis where it was unable to be ADMIT: 01/21/2017 RM/LOC: 409 [facility] MR#: [id number] [address] [id number] MATTHEW PORTER [address] [place] [address] Operative/Delivery Room Report SEX: M AGE: 71 : 1945 retrieved. At this point, the laser fiber was removed and a 0.03 Glidewire inserted through the ureteroscope into the renal pelvis. The ureteroscope was then slowly withdrawn under direct vision leaving the Glidewire indwelling. The cystoscope was backloaded over the Glidewire, and a 6-Paraguayan 26 cm double- J ureteral stent was inserted positioning the stent within the renal pelvis, ureter, and bladder. The string was removed from the distal end of the stent. The Glidewire was then removed leaving the stent indwelling and in good position as noted on fluoroscopy. The bladder was then drained and cystoscope removed. The patient having tolerated the procedure, was then taken to the recovery room in satisfactory condition. Sowmya Wooten MD/ vinny JOB #: [id number] CC: Walker Castro, Attending Physician Walker Castro, Family Physician Walker Castro MD
[2017-04-11] MEDS ORDERED: DELZICOL400 M1 PO (15:31)
[2017-04-11] MEDS ORDERED: PROTONIX40 MG PO (15:31)
[2017-04-11] MEDS ORDERED: NITROSTAT0.4 MG SL (15:31)
[2017-04-11] MEDS ORDERED: LIPITOR40 MG PO (15:32)
== END 2017-01-25 11:41 | disposition home or self-care (01) | DRG 309 ==
LOC: ER 12:45 → 4PCU 15:00
PROVIDERS: ADMIT Internal Medicine
PROC: 0T778DZ Dilation of Left Ureter with Intraluminal Device, Via Natural or Artificial Opening Endoscopic (ICD-10-PCS; principal; 2017-01-24)
PROC: 0TF78ZZ Fragmentation in Left Ureter, Via Natural or Artificial Opening Endoscopic (ICD-10-PCS; principal; 2017-01-24)
DX: R00.1 Bradycardia, unspecified (principal); N13.2 Hydronephrosis with renal and ureteral calculous obstruction; N17.9 Acute kidney failure, unspecified; I34.0 Nonrheumatic mitral (valve) insufficiency; N13.8 Other obstructive and reflux uropathy; I10 Essential (primary) hypertension; I45.10 Unspecified right bundle-branch block; G47.33 Obstructive sleep apnea (adult) (pediatric); N40.1 Benign prostatic hyperplasia with lower urinary tract symptoms; I25.10 Atherosclerotic heart disease of native coronary artery without angina pectoris; I25.2 Old myocardial infarction; K21.9 Gastro-esophageal reflux disease without esophagitis; Z95.5 Presence of coronary angioplasty implant and graft; Z79.82 Long term (current) use of aspirin; Z85.09 Personal history of malignant neoplasm of other digestive organs